=== PATIENT | female | born 1965 | race Caucasian/White ===

== ENCOUNTER 2024-11-30 21:56 | Emergency (ER) | payer BC, SELFPAY ==
[2024-11-30 21:58] VITALS: BP 108/72
[2024-11-30] MEDS: OCUFLOX 1 DROP OTIC (22:48)
--- NOTE | 2024-11-30 22:55 | ED.GENMED ---
History of Present Illness
General
Chief Complaint: Eye Problems
Source: patient
Exam Limitations: none
Time Seen by Provider: 11/30/24 22:37
Nursing documentation reviewed up to this point in time: agreed with
History of Present Illness
History of Present Illness:
Patient to ED with complaint of right eye irritation. States she is new to contacts. She thought she put her right contact in tonight but then when she tried to take it out she couldnt find it. Has been attempting to remove contact that she can
not find. Brought to ED by spouse for eval
Past History
Past History
ED Past Medical History: None
ED Past Surgical History: Other (Eye surgery)
Social History
Tobacco: Non-smoker
Alcohol: None
Drug: None
Personal:
Living: with family
Review of Systems
Review of Systems
Allergies reviewed?: Yes
All Other Systems: ROS reviewed and negative except as documented in HPI and ROS
Constitutional: Reports no symptoms
EENT: Reports other (foreign body sensation right eye. Unble to find contact.)
Musculoskeletal: Reports no symptoms
Skin: Reports no symptoms
Neurological: Reports no symptoms
Psychiatric: Reports no symptoms
Phy Exam
General Physical Exam
General Presentation: well appearing and no apparent distress
General age: appears stated age
General Skin: warm and dry
General Habitus: normal
Eye Exam
Eye Exam: PERRL, EOMI, conjunctiva normal and other (Lids everted, swept with qtip. No contact noted.)
Conjunctival Changes: right: watery discharge
Cornea Exam: abrasion: Right (superficial punctate keratitis)
Type of Exam: slit lamp, simple and fluorescein
Musculoskeletal Exam
Musculoskeletal Exam: full ROM
Skin Exam
Skin Exam: normal color and warm/dry
Psychiatric Exam
Psychiatric Exam: normal mood/affect
Course
Orders/Labs/Results
Orders:
Orders
11/30/24 22:37
Ofloxacin [Ocuflox] See Dose Instructions [facility] NOW STA
11/30/24 22:45
Ofloxacin [Ocuflox] 1 drop .ROUTE .STK-MED ONE
Vital Signs
Initial and Last Documented VS:
Initial Vital Signs
Temp Pulse Resp BP Pulse Ox
97.8 F 83 18 108/72 99
11/30/24 21:58 11/30/24 21:58 11/30/24 21:58 11/30/24 21:58 11/30/24 21:58
Last Documented Vital Signs
Temp Pulse Resp BP Pulse Ox
97.8 F 83 18 108/72 99
11/30/24 21:58 11/30/24 21:58 11/30/24 21:58 11/30/24 21:58 11/30/24 21:58
*Critical Care Note
Total Time (30-74mins, 75-104mins- exclusive of procedures): Not Applicable
ED Attending Note
-
Portions of this chart may have been created with voice recognition software.� Occasional wrong word or��sound alike� substitutions may have occurred due to the inherent limitations of voice recognition software.
Discharge Plan
Departure
Patient Disposition: Home (Routine Discharge)
Date of Disposition: 11/30/24
Time of Disposition: 22:38
Patient with high blood pressure during this ER visit?: No
Condition: Good
Covid-19: Not Applicable
Discharge Problem:
Keratitis, superficial, punctate
Instructions: Corneal Abrasion (DC)
Prescriptions:
New
ofloxacin [Ocuflox] 0.3 % drops
1 drp ophthalmic (eye) QID Qty: 5 0RF
Activity Restrictions/Additional Instructions:
Follow up with your eye doctor on Tuesday.
Interventions
Interventions:
*Risk Screen - Suicide Last Done: 11/30/24 22:48
*General Assessment Last Done: 11/30/24 21:58
*Neglect/Abuse Screening Last Done: 11/30/24 22:48
*ED COVID-19 Vaccine History Last Done: 11/30/24 21:58
*Nursing Disposition Last Done: 11/30/24 22:48
Discharge Date and Time
Discharge Date/Time: 11/30/24 22:49
Print Language: [email or web address]
== END 2024-11-30 22:49 | disposition home or self-care (01) ==
LOC: EMR 21:56
PROVIDERS: EMERGENCY PHYSICIAN Emergency Medicine; FAMILY PHYSICIAN Nurse Practitioner Adult Health
DX: H16.101 Unspecified superficial keratitis, right eye (principal); S05.01XA Injury of conjunctiva and corneal abrasion without foreign body, right eye, initial encounter; X58.XXXA Exposure to other specified factors, initial encounter
CPT/HCPCS: 99283

== ENCOUNTER → 2024-12-07 08:47 | Outpatient (REF) | payer BC, SELFPAY | LOC: WDC 08:47 | PROVIDERS: ATTENDING PHYSICIAN Obstetrics & Gynecology Gynecology; FAMILY PHYSICIAN Nurse Practitioner Adult Health | DX: Z12.31 Encounter for screening mammogram for malignant neoplasm of breast (principal) | CPT/HCPCS: 77063; 77067 ==

== ENCOUNTER → 2025-10-02 13:25 | Outpatient (REF) | payer BC, SELFPAY | LOC: HWRAD 13:25 | PROVIDERS: ATTENDING PHYSICIAN Obstetrics & Gynecology Gynecology; FAMILY PHYSICIAN Nurse Practitioner Adult Health | DX: R10.20 Pelvic and perineal pain unspecified side (principal) | CPT/HCPCS: 76830; 76856 ==